=== PATIENT | female | born 2000 | race Hispanic/Latino ===

== ENCOUNTER → 2023-11-26 | Emergency (ER) | payer OTHER ==
--- NOTE | 2023-11-26 09:35 | ER ---
Nurse's Notes [facility] Name: Ashley Barcenas Age: 23 yrs Sex: Female : 2000 Arrival Date: 11/26/2023 Time: 08:43 Bed 12 Private MD: Diagnosis: Nonpurulent mastitis associated with Presentation: 11/25 08:54 Chief complaint: Patient states: PAINFUL LEFT BREAST LUMP SINCE FRIDAY. Coronavirus bp screen: At this time, the client does not indicate any symptoms associated with coronavirus-19. Ebola Screen: No symptoms or risks identified at this time. Initial Sepsis Screen: Does the patient meet any 2 criteria? No. Patient's initial sepsis screen is negative. Does the patient have a suspected source of infection? No. Patient's initial sepsis screen is negative. Risk Assessment: Do you want to hurt yourself or someone else? Patient reports no desire to harm self or others. Onset of symptoms is unknown. 08:54 Method Of Arrival: Ambulatory bp 08:54 Acuity: MAGDALENA 4 bp Triage Assessment: 08:57 General: Appears in no apparent distress. uncomfortable, Behavior is calm, cooperative, bp appropriate for age. Pain: Complains of pain in left breast. Historical: - Allergies: 08:57 No Known Allergies; bp - Home Meds: 08:57 None [Active]; bp - PMHx: 08:57 None; bp - Immunization history:: Adult Immunizations up to date. - Social history:: Smoking status: Patient denies any tobacco usage or history of. - Family history:: not pertinent. - Hospitalizations: : No recent hospitalization is reported. Screenin:48 [facility] ED Fall Risk Assessment (Adult) History of falling in the last 3 months, bp including since admission No falls in past 3 months (0 pts). Abuse screen: Denies threats or abuse. Denies injuries from another. Nutritional screening: No deficits noted. Tuberculosis screening: No symptoms or risk factors identified. Assessment: 09:48 General: PT DC HOME. bp Vital Signs: 08:54 BP 103 / 67; Pulse 85; Resp 16; Temp 97.6; Pulse Ox 100% ; Weight 63.5 kg; Height 5 ft. bp 0 in. ; 08:54 Body Mass Index 27.34 (63.50 kg, 152.4 cm) bp ED Course: 08:47 Patient arrived in ED. im 08:57 Triage completed. bp 08:57 Arm band placed on. bp 08:58 Tyrese Reis MD is Attending Physician. rn 09:48 Patient has correct armband on for positive identification. bp 09:48 No provider procedures requiring assistance completed. Patient did not have IV access bp during this emergency room visit. Administered Medications: No medications were administered Medication: 09:48 VIS not applicable for this client. bp Outcome: 09:34 Discharge ordered by MD. rn 09:48 Discharged to home ambulatory, bp 09:48 Condition: stable 09:48 Discharge instructions given to patient, Instructed on discharge instructions, follow up and referral plans. medication usage, Demonstrated understanding of instructions, follow-up care, medications, Prescriptions given X 1, 09:49 Patient left the ED. bp Signatures: Tyrese Reis MD MD rn Peltier, Brian, RN RN bp Lyndsay Walsh im
--- NOTE | 2023-11-26 09:35 | EDPHYS ---
Physician Documentation [facility] Name: Ashley Barcenas Age: 23 yrs Sex: Female : 2000 Arrival Date: 11/26/2023 Time: 08:43 Bed 12 Private MD: ED Physician Tyrese Reis HPI: 11/25 09:29 This 23 yrs old Female presents to ER via Ambulatory with complaints of Breast rn Lump - left, Fever. 09:29 The patient reports fever, not measured (subjective). rn 09:30 Onset: The symptoms/episode began/occurred 5 day(s) ago. Modifying factors: there are rn no obvious modifying factors. Associated signs and symptoms: Pertinent negatives: altered mental status, chest pain. Severity of symptoms: At their worst the symptoms were mild in the emergency department the symptoms are unchanged. The patient has not experienced similar symptoms in the past. Patient reports breast-feeding and noticed area of swelling and redness in the left breast. Patient continues to breast-feed but not improving. Now present for approximately 5 days. Subjective fever 2 days ago, no current fever.. Historical: - Allergies: 08:57 No Known Allergies; bp - Home Meds: 08:57 None [Active]; bp - PMHx: 08:57 None; bp - Immunization history:: Adult Immunizations up to date. - Social history:: Smoking status: Patient denies any tobacco usage or history of. - Family history:: not pertinent. - Hospitalizations: : No recent hospitalization is reported. ROS: 09:30 Constitutional: Negative for fever, chills, and weight loss, Cardiovascular: Negative rn for chest pain, palpitations, and edema, Skin: Positive for redness and pain to left lateral breast Exam: 09:30 Constitutional: This is a well developed, well nourished patient who is awake, alert, rn and in no acute distress. Chest/axilla: Left lateral breast with area of redness and induration. No fluctuance. No superficial skin wounds or open wounds or drainage. Normal areola Cardiovascular: Regular rate and rhythm. No pulse deficits. Vital Signs: 08:54 BP 103 / 67; Pulse 85; Resp 16; Temp 97.6; Pulse Ox 100% ; Weight 63.5 kg; Height 5 ft. bp 0 in. ; 08:54 Body Mass Index 27.34 (63.50 kg, 152.4 cm) bp MDM: 08:58 Patient medically screened. rn 09:30 Differential diagnosis: Mastitis. Data reviewed: vital signs, nurses notes, and as a rn result, I will discharge patient. Counseling: I had a detailed discussion with the patient and/or guardian regarding the historical points, exam findings, and any diagnostic results supporting the discharge/admit diagnosis, the need for outpatient follow up, to return to the emergency department if symptoms worsen or persist or if there are any questions or concerns that arise at home. Special discussion: I discussed with the patient/guardian in detail that at this point there is no indication for admission to the hospital. It is understood, however, that if the symptoms persist or worsen the patient needs to return immediately for re-evaluation. ED course: No evidence of abscess at this time. Will discharge home with antibiotics for mastitis and given strict return precautions.. Administered Medications: No medications were administered Disposition Summary: 11/26/23 09:34 Discharge Ordered Notes: Location: Home rn Problem: new rn Symptoms: are unchanged rn Condition: Stable rn Diagnosis - Nonpurulent mastitis associated with rn Followup: rn - With: Private Physician - When: As needed - Reason: Recheck today's complaints, Re-evaluation by your physician Discharge Instructions: - Discharge Summary Sheet rn - Mastitis rn Forms: - Medication Reconciliation Form rn - Thank You Letter rn - Antibiotic rn patient services - Prescription Opioid Use rn - Patient Portal Instructions rn - Leadership Thank You Letter rn Prescriptions: - Dicloxacillin 500 mg Oral Capsule - take 1 capsule ORAL route every 6 hours for 10 days; 40 capsule; Refills: 0, rn Product Selection Permitted Signatures: Tyrese Reis MD MD rn Peltier, Brian, RN RN bp Corrections: (The following items were deleted from the chart) 09:32 09:30 Constitutional: This is a well developed, well nourished patient who is awake, rn alert, and in no acute distress. Chest/axilla: Left lateral breast with area of redness and induration. No fluctuance. No superficial skin wounds or open wounds or drainage. Normal areola rn
[2023-11-26 09:53] VITALS: BP 103/67; TEMP 97.6; O2SAT 100
== END ==
LOC: ER 08:43
DX: O91.23 Nonpurulent mastitis associated with lactation (principal)
CPT/HCPCS: 99283